=== PATIENT | female | born 2000 | race Hispanic/Latino ===

== ENCOUNTER 2021-08-10 19:00 | Inpatient (IN) | payer OTHER ==
[~2021-08-10 19:00] MED LIST: Acetaminophen 500 MG TAB PO PRN; Carboprost 250 MCG/ML AMP IM PRN; Ibuprofen 800 MG TAB PO PRN; Lidocaine 1% (PF) 30 ML VIAL SC PRN; Methylergonovine 0.2 MG/ML VIAL IM PRN; Misoprostol 200 MCG TAB PR PRN; Ondansetron PF 4 MG/2 ML Vial IVP PRN; Promethazine HCl 25 MG/ML VIAL IM PRN; hydrALAZINE 20 MG/ML VIAL SLOW IVP PRN
[2021-08-10] MEDS: Lactated Ringer's 1,000 ML IV SCH (22:15)
[2021-08-10 22:36] LABS: Mean Corpuscular HGB CONC 34.6 g/dL (32.0-36.0); Mean Corpuscular Hemoglobin 30.2 pg (27.0-33.0); Mean Corpuscular Volume 87.4 fl (81.6-98.3); Mean Platelet Volume 10.3 fl (7.4-10.4); Platelet Count 248 10x3/uL (150-450); RBC Distribution Width 13.6 % (11.5-14.5); Red Blood Cell (RBC) Count 3.97 10x6/uL (3.90-5.03); White Blood Cell (WBC) Count 6.7 10x3/uL (3.5-10.5)
[2021-08-10 22:44] VITALS: BMI 27.6
[2021-08-10] MEDS: Misoprostol 100 MCG TAB VAG PRN (22:54)
[2021-08-10 23:08] LABS: Hep B Surf Ag Non-Reactive S/CO (NonReactive); Syphilis Antibody Nonreactive (Nonreactive); Syphilis Antibody Index 0.05 S/CO (<1.00 Non-Reactive)
[2021-08-10 23:09] LABS: HBSAg Index 0.13 S/CO (0-0.99)
[2021-08-11] MEDS: Lactated Ringer's 1,000 ML IV SCH (05:12)
[2021-08-11] MEDS: Misoprostol 100 MCG TAB VAG PRN (05:36)
[2021-08-11] MEDS ORDERED: Fentanyl 100 MCG/2 ML VIAL ONE (10:50)
[2021-08-11] MEDS ORDERED: Fentanyl 100 MCG/2 ML VIAL SLOW IVP SCH ×2 (11:00→17:00)
[2021-08-11] MEDS: NS w/ Oxytocin 30 units 500 ML IV SCH ×2 (16:55→22:30)
[2021-08-11] MEDS ORDERED: Fentanyl 2 mcg/Bup 0.1% Cadd 0 ML ONE (17:09)
[2021-08-11] MEDS ORDERED: SODIUM CHLORIDE IV PRN (18:30)
[2021-08-11] MEDS ORDERED: diphenhydrAMINE 25 MG CAP PO PRN (18:30)
[2021-08-11] MEDS ORDERED: diphenhydrAMINE 50 MG/ML VIAL IM PRN (18:30)
[2021-08-11] MEDS ORDERED: Promethazine HCl 25 MG/ML VIAL IM PRN (18:30)
[2021-08-11] MEDS ORDERED: diphenhydrAMINE 50 MG/ML VIAL IVP PRN (18:30)
[2021-08-11] MEDS ORDERED: Naloxone HCl 0.4 mg/ml Vial IV PRN (18:30)
[2021-08-11] MEDS ORDERED: [UNRECOGNIZED DRUG - OTHER] FS PRN (18:30)
[2021-08-11] MEDS ORDERED: Zolpidem Tartrate 5 MG TAB PO PRN (18:30)
[2021-08-11] MEDS ORDERED: FENTANYL CITRATE IV PRN (18:30)
[2021-08-11] MEDS ORDERED: ADMIXTURE FEE IV PRN (18:30)
[2021-08-11] MEDS ORDERED: Ondansetron PF 4 MG/2 ML Vial IVP PRN (18:30)
[2021-08-11] MEDS ORDERED: fentaNYL Citrate/PF 1,000 MCG, Admixture Fee 1 EACH in Sodium Chloride 0.9% 30 ML IV PRN (19:00)
[2021-08-11] MEDS ORDERED: Lidocaine 1% (PF) 30 ML VIAL ONE (20:58)
[2021-08-11] MEDS ORDERED: Misoprostol 200 MCG TAB PR PRN (22:36)
[2021-08-11] MEDS ORDERED: Misoprostol 200 MCG TAB ONE (22:44)
[2021-08-11] MEDS ORDERED: Tranexamic Acid 1,000 MG/10 ML VIAL ONE (22:44)
[2021-08-11] MEDS ORDERED: diphenhydrAMINE 50 MG/ML VIAL IVP SCH (22:45)
[2021-08-11] MEDS ORDERED: Acetaminophen 500 MG TAB PO SCH (22:45)
[2021-08-11] MEDS ORDERED: Lactated Ringer's 500 ML IV SCH (23:00)
[2021-08-12] MEDS ORDERED: Lanolin Ointment 7 GM TUBE TOP PRN (00:33)
[2021-08-12] MEDS ORDERED: Ondansetron PF 4 MG/2 ML Vial IVP PRN (00:33)
[2021-08-12] MEDS ORDERED: Promethazine HCl 25 MG/ML VIAL IM PRN (00:33)
[2021-08-12] MEDS ORDERED: hydrALAZINE 20 MG/ML VIAL SLOW IVP PRN (00:33)
[2021-08-12] MEDS ORDERED: Misoprostol 200 MCG TAB PR PRN (00:33)
[2021-08-12] MEDS ORDERED: Boostrix 0.5 ML (Tdap) VIAL IM ONE (00:33)
[2021-08-12] MEDS ORDERED: Methylergonovine 0.2 MG/ML VIAL IM PRN (00:33)
[2021-08-12] MEDS ORDERED: Benzocaine-Menthol 82.5 ML CAN TOP PRN (00:39)
[2021-08-12] MEDS ORDERED: NS w/ Oxytocin 30 units 500 ML IV SCH (01:00)
[2021-08-12] MEDS: Ibuprofen 800 MG TAB PO SCH ×3 (05:20→22:21)
[2021-08-12 07:33] LABS: Hemoglobin 9.3 g/dL (12.0-15.5); Mean Corpuscular Volume 85.8 fl (81.6-98.3); Mean Platelet Volume 10.3 fl (7.4-10.4); Platelet Count 160 10x3/uL (150-450); RBC Distribution Width 13.9 % (11.5-14.5)
[2021-08-12] MEDS: Ferrous Sulfate 325 MG TAB PO SCH ×2 (08:46→22:21)
[2021-08-12] MEDS: Docusate 100 MG CAP PO SCH ×2 (08:46→22:21)
[2021-08-12] MEDS: Prenatal Vitamin 1 TAB PO SCH (08:46)
[2021-08-12] MEDS: Lactated Ringer's 1,000 ML IV SCH (10:49)
[2021-08-13] MEDS: Ibuprofen 800 MG TAB PO SCH (06:01)
[2021-08-13 08:09] VITALS: BP 90/55; TEMP 97.9
[2021-08-13] MEDS: Docusate 100 MG CAP PO SCH (09:05)
[2021-08-13] MEDS: Ferrous Sulfate 325 MG TAB PO SCH (09:05)
[2021-08-13] MEDS: Prenatal Vitamin 1 TAB PO SCH (09:05)
== END 2021-08-13 12:50 | disposition home or self-care (01) | DRG 805 ==
LOC: CSHLD 19:15 → CSHPP 08-12 03:06
PROVIDERS: ADMIT Obstetrics & Gynecology; ATTEND Family Medicine
PROC: 10E0XZZ Delivery of Products of Conception, External Approach (ICD-10-PCS; principal; 2021-08-11)
PROC: 0KQM0ZZ Repair Perineum Muscle, Open Approach (ICD-10-PCS; 2021-08-11)
PROC: 3E0P7VZ Introduction of Hormone into Female Reproductive, Via Natural or Artificial Opening (ICD-10-PCS; 2021-08-11)
PROC: 30233N1 Transfusion of Nonautologous Red Blood Cells into Peripheral Vein, Percutaneous Approach (ICD-10-PCS; 2021-08-11)
PROC: 10907ZC Drainage of Amniotic Fluid, Therapeutic from Products of Conception, Via Natural or Artificial Opening (ICD-10-PCS; 2021-08-11)
PROC: 0U7C7ZZ Dilation of Cervix, Via Natural or Artificial Opening (ICD-10-PCS; 2021-08-11)
DX: O99.892 Other specified diseases and conditions complicating childbirth (principal); O45.93 Premature separation of placenta, unspecified, third trimester; Z37.0 Single live birth; O72.2 Delayed and secondary postpartum hemorrhage; D62 Acute posthemorrhagic anemia; O70.1 Second degree perineal laceration during delivery; Z3A.39 39 weeks gestation of pregnancy; Z20.822 Contact with and (suspected) exposure to COVID-19; Z86.16 Personal history of COVID-19; Z79.899 Other long term (current) drug therapy; Z88.0 Allergy status to penicillin; O76 Abnormality in fetal heart rate and rhythm complicating labor and delivery; M41.9 Scoliosis, unspecified; O90.81 Anemia of the puerperium
CPT/HCPCS: 36415; 36430; 85027; 86780; 86850; 86900; 86901; 87340; J2590; J3010; J3490; J7120; P9016

== ENCOUNTER 2021-08-17 05:52 | Observation (INO) | payer OTHER ==
[2021-08-17] MEDS ORDERED: Ondansetron ODT 4 MG TAB PO PRN (07:59)
[2021-08-17] MEDS ORDERED: Acetaminophen 325 MG TAB PO PRN (07:59)
[2021-08-17] MEDS ORDERED: Ondansetron PF 4 MG/2 ML Vial IVP PRN (07:59)
[2021-08-17 09:01] VITALS: BMI 22.8
[2021-08-17] MEDS: metroNIDAZOLE 500 MG in Premix Bag 1 BAG IVPB SCH ×2 (13:46→21:19)
[2021-08-17] MEDS ORDERED: cefTRIAXone\\ROCEPHIN 1 GM in Sodium Chloride 0.9% 100 ML IVPB SCH (16:45)
[2021-08-17] MEDS: cefTRIAXone\\ROCEPHIN 2 GM in Sodium Chloride 0.9% 100 ML IVPB SCH (17:19)
[2021-08-17] MEDS ORDERED: Ibuprofen 600 MG TAB PO PRN (17:44)
[2021-08-18] MEDS: metroNIDAZOLE 500 MG in Premix Bag 1 BAG IVPB SCH ×2 (04:38→13:16)
[2021-08-18 05:34] LABS: #Eosinphils 0.3 10x3/uL (0.0-0.5); #Monocytes 1.1 10x3/uL (0.0-1.1); #Neutrophils 7.3 10x3/uL (1.5-8.4); %Basophils 0.4 % (0.0-2.0); %Eosinophils 2.3 % (0.0-6.0); %Lymphocytes 18.5 % (18.0-47.0); %Monocytes 10.3 % (0.0-10.0); %Neutrophils 66.9 % (40.0-75.0); Hemoglobin 8.7 g/dL (12.0-15.5); Mean Corpuscular Hemoglobin 29.6 pg (27.0-33.0); Mean Corpuscular Volume 87.1 fl (81.6-98.3); Mean Platelet Volume 8.5 fl (7.4-10.4); Platelet Count 402 10x3/uL (150-450); RBC Distribution Width 13.8 % (11.5-14.5); Red Blood Cell (RBC) Count 2.94 10x6/uL (3.90-5.03)
[2021-08-18 05:51] LABS: Anion Gap 12 mmol/L (10-20); BUN (Urea Nitrogen) 9 mg/dL (8.4-21.0); Calc. Creatinine Clearance 148 mL/min (70-130); Calcium 8.2 mg/dL (7.8-10.44); Carbon Dioxide 22 mmol/L (22-29); Chloride 110 mmol/L (98-107); Glucose 83 mg/dL (70-105); Potassium 3.4 mmol/L (3.5-5.1); Sodium 141 mmol/L (136-145)
[2021-08-18] MEDS ORDERED: Ferrous Sulfate 325 MG TAB PO SCH (07:45)
[2021-08-18] MEDS ORDERED: Prenatal Vitamin 1 TAB PO SCH (09:00)
[2021-08-18 11:08] VITALS: BP 116/73; TEMP 98.2
[2021-08-18] MEDS ORDERED: Sodium Chloride 0.9% 100 ML ONE (16:26)
[2021-08-18] MEDS: cefTRIAXone\\ROCEPHIN 2 GM in Sodium Chloride 0.9% 100 ML IVPB SCH (16:31)
[2021-08-18] MEDS ORDERED: cefTRIAXone\\ROCEPHIN 2 GM in Sodium Chloride 0.9% 100 ML IVPB SCH (16:45)
== END 2021-08-18 18:35 | disposition home or self-care (01) ==
LOC: CSHPP 05:52 → INTOOBSV 05:52
PROVIDERS: ADMIT Obstetrics & Gynecology; ATTEND Obstetrics & Gynecology
DX: O99.893 Other specified diseases and conditions complicating puerperium (principal); R50.9 Fever, unspecified; O99.13 Other diseases of the blood and blood-forming organs and certain disorders involving the immune mechanism complicating the puerperium; D72.829 Elevated white blood cell count, unspecified; O90.81 Anemia of the puerperium; Z86.16 Personal history of COVID-19; Z79.899 Other long term (current) drug therapy; Z88.0 Allergy status to penicillin
CPT/HCPCS: 36415; 80048; 85025; 86140; 96365; 96367; 96376; G0378; J0696; J3490